=== PATIENT | female | born 1970 | race Caucasian/White ===

== ENCOUNTER 2017-02-13 13:35 | Day surgery (SDC) | payer BC ==
--- NOTE | ~2017-02-13 | OP ---
Record Of Operation [facility] [address] [place]. [address] NAME: RIVKA LOWE : 72 STATUS : [facility]#: [id number] AGE: 46 ADM/REG DATE : 02/13/17 MR#: [id number] REPORT SERV DATE: 02/14/17 DICTATED BY: ALEXIS WEBB DATE: 02/14/17 REPORT STATUS : Draft TRANSCRIBED BY: MODL DATE: 02/14/17 DATE OF PROCEDURE: 02/13/2017 PREOPERATIVE DIAGNOSIS: Chronic cholecystitis and cholelithiasis. POSTOPERATIVE DIAGNOSIS: Chronic cholecystitis and cholelithiasis. PROCEDURE: Laparoscopic cholecystectomy (three-site). DESCRIPTION OF OPERATIVE PROCEDURE: The patient was brought to the operating suite, placed in a supine position, underwent satisfactory general endotracheal anesthesia without incident. The skin of the abdomen was scrubbed, prepped, and draped in usual sterile fashion. 0.5% Marcaine with epinephrine was utilized as supplemental local anesthesia at all intended trocar sites. Initially, an infraumbilical incision was performed dissecting through the skin and subcutaneous tissue to the umbilical fascia. This was grasped with a Douglas clamp and elevated and a disposable Veress insufflation needle was inserted through the umbilical fascia into the peritoneal cavity. Intraperitoneal tip location ascertained using the saline hanging drop method. Next, CO2 was insufflated for pressures of 15 mmHg throughout the case. After adequate insufflation pressure was achieved, Veress needle was removed, disposable bladed/shielded 11 mm trocar inserted through the umbilical fascia into the peritoneal cavity, following which a rigid forward-viewing 10 mm laparoscope was inserted. Visualization of the intraabdominal parietes revealed no evidence of injury from initial insufflation or puncture. A cursory examination pelvis was normal. Attention was turned to the upper abdomen where eventually two additional 5 mm trocars were placed under direct visualization. Visualizing the gallbladder revealed that there were some fairly dense periduodenal and omental adhesions to the fundus and body of the gallbladder. The gallbladder was grasped and elevated. Then, using a combination of blunt and cautery dissection, the fibrofatty adhesions were taken down. The gallbladder was somewhat chronically thick-walled and inflamed with some subacute edematous changes. Dissection of triangle of Calot revealed a small stone impacted into the cystic duct. Eventually, the cystic duct/common duct junction and cystic artery were identified, skeletonized, and a critical view was obtained. The cystic artery was divided between 5 mm Weck polymer clips and then the stone was "milked" from the cystic duct back into the infundibular portion of the gallbladder enough to secure the cystic duct with Weck clips, which was then divided. Using spatula cautery dissection supplemented with irrigation and aspiration, the gallbladder was removed from the subhepatic space. Hemostasis was assured. Then, the gallbladder was transferred into an Endo retrieval pouch, Record Of Operation [address] [address] NAME: RIVKA LOWE : 72 STATUS : [facility] PAT#: [id number] AGE: 46 ADM/REG DATE : 02/13/17 MR#: [id number] REPORT SERV DATE: 02/14/17 DICTATED BY: ALEXIS WEBB DATE: 02/14/17 REPORT STATUS : Draft TRANSCRIBED BY: MODL DATE: 02/14/17 placed through the umbilical trocar, the camera having been switched to the 5 mm epigastric trocar. Trocars were removed. No muscular bleeding was noted. The gallbladder was withdrawn intact into the Endo retrieval pouch through the umbilicus and delivered. It was found to contain stones. CO2 was allowed to egress from peritoneal cavity. No muscular bleeding was noted. The umbilicus was closed with a beldum-bo-xjkad suture of 0 Vicryl, subcutaneous tissue closure with interrupted 4-0 Vicryl, running subcuticular stitch of 4-0 Vicryl for the skin. Dermabond skin adhesive placed. The patient tolerated the procedure well and was returned to PACU in stable condition. At the termination of the procedure, sponge, needle, lap, and instrument counts were correct x3. ESTIMATED BLOOD LOSS: Less than 15-20 mL. WR/MODL Alexis Webb M.D. / [id number] CC: Kim Castro TERESA J
[~2017-02-13 13:35] MED LIST: LOP100 PO; MULTIVIT/MIN PO; PRILOSEC40 MG PO; [UNRECOGNIZED DRUG - OTHER] PO
[2017-02-13 13:59] LABS: HEMATOCRIT 42.7 % (36.0-48.0)
[2017-02-13 14:12] LABS: A/G RATIO 1.3 (0.7-1.9); ALBUMIN 4.3 G/DL (3.5-5.0); ALKALINE PHOSPHATASE 40 U/L (45-117); BUN (BLOOD UREA NITROGEN) 15 MG/DL (6-23); CALCIUM, SERUM 8.9 MG/DL (8.5-10.4); CHLORIDE, SERUM 107 MMOL/L (96-112); CO2 (CARBON DIOXIDE) 30 MMOL/L (24-34); CREATININE 0.79 MG/DL (0.55-1.02); GFR AFRICAN AMERICAN 105 ML/MIN (>=60); GFR NON AFRICAN AMERICAN 90 ML/MIN (>=60); GLOBULIN 3.2 G/DL (2.5-4.1); GLUCOSE, SERUM 93 MG/DL (60-99); POTASSIUM, SERUM 4.3 MMOL/L (3.5-5.3); SGOT(AST) 47 U/L (5-40); SGPT(ALT) 81 U/L (5-65); SODIUM, SERUM 142 MMOL/L (135-148); TOTAL BILIRUBIN 0.6 MG/DL (0-1.2); TOTAL PROTEIN 7.5 G/DL (6.0-8.5)
== END 2017-02-13 21:11 | disposition home or self-care (01) ==
LOC: SDC 13:35
PROVIDERS: Specialist
PROC: 0FT44ZZ Resection of Gallbladder, Percutaneous Endoscopic Approach (ICD-10-PCS; principal; 2017-02-13 15:00)
DX: K80.10 Calculus of gallbladder with chronic cholecystitis without obstruction (principal); K82.8 Other specified diseases of gallbladder; E66.9 Obesity, unspecified; Z68.32 Body mass index [BMI] 32.0-32.9, adult; F41.9 Anxiety disorder, unspecified; I10 Essential (primary) hypertension; Z88.0 Allergy status to penicillin; Z91.09 Other allergy status, other than to drugs and biological substances; Z79.899 Other long term (current) drug therapy; Z98.51 Tubal ligation status; Z90.710 Acquired absence of both cervix and uterus; Z90.721 Acquired absence of ovaries, unilateral; Z98.890 Other specified postprocedural states
CPT/HCPCS: 76000; 80053; 85014; 85018; 88304; 93005; J0690; J1170; J1885; J2250; J2405; J2550; J2710; J3010; Q9967